=== PATIENT | female | born 1960 | race Caucasian/White ===

== ENCOUNTER 2017-07-30 09:43 | Day surgery (SDC) | payer OTHER ==
[~2017-07-30 09:43] MED LIST: Acetaminophen/HYDROcodone 325-5 MG Tab PO PRN; Bupivacaine 0.25%/EPINEPHrine 1:200,000 10 ML SDV INJECT ONE; Bupivacaine 25%/EPINEPHrine/PF 30 ML ONE; Lactated Ringers 1,000 ML IV SCH; Lidocaine 2% 5 ML SDV ONE; Midazolam 1 MG/ML 2 ML SDV ONE; Propofol 200 MG/20 ML SDV ONE; ceFAZolin 2 GM in Premix Bag 1 BAG IV ONE; fentaNYL 100 MCG/2 ML SDV ONE
[2017-07-30] MEDS ORDERED: ceFAZolin/Dextrose,Iso-Osmotic 2 GM/50 ML Duplex Bag IV ONE (10:41)
--- NOTE | 2017-07-30 11:11 | PCM.PREANE ---
Preanesthetic Assessment - Anesthesia/Transfusion/Family Hx Anesthesia History: Prior Anesthesia Without Reaction Other Type of Anesthesia Reaction Comment: developed CHF after Hysterectomy- sent home on Lasix Family History of Anesthesia Reaction: No Transfusion History: No Prior Transfusion(s) Intubation History: Unknown - Review of Systems General: No Symptoms Pulmonary: No Symptoms Cardiovascular: No Symptoms Gastrointestinal: No Symptoms Neurological: No Symptoms Other: Reports: None - Physical Assessment Height: 1.7 m Weight: 72.575 kg ASA Class: 2 Mental Status: Alert & Oriented x3 Airway Class: Mallampati = 2 Dentition: Reports: Normal Dentition, Rawlins(s) (x2 upper front) Thyro-Mental Finger Breadths: 2 Mouth Opening Finger Breadths: 3 ROM/Head Extension: Full Lungs: Clear to Auscultation, Normal Respiratory Effort Cardiovascular: Regular Rate, Regular Rhythm - Allergies Allergies/Adverse Reactions: Allergies Allergy/AdvReac Type Severity Reaction Status Date / Time No Known Allergies Allergy Verified 07/27/17 17:19 - Blood Blood Available: No - Anesthesia Plan Pre-Op Medication Ordered: None - Acknowledgements Anesthesia Type Planned: General Anesthesia Pt an Appropriate Candidate for the Planned Anesthesia: Yes Alternatives and Risks of Anesthesia Discussed w Pt/Guardian: Yes Pt/Guardian Understands and Agrees with Anesthesia Plan: Yes PreAnesthesia Questionnaire Other HEENT History: uses reading glasses, has lower partial removable denture Cardiovascular History: Reports: Other (See Below) Other Cardiovascular History: developed CHF after Hysterectomy, was sent home on Lasix Gastrointestinal History: Reports: None COLLAR STITCHER History: Reports: Endometriosis Neurological History: Reports: Other (See Below) Other Neuro History: hx of motion sickness Psychiatric History: Reports: Anxiety, Depression Dermatologic History: Reports: Eczema - Past Surgical History Head Surgeries/Procedures: Reports: None HEENT Surgical History: Reports: LASIK GI Surgical History: Reports: Appendectomy Female Surgical History: Reports: Breast Implant, Hysterectomy Musculoskeletal Surgical History: Reports: Other (See Below) Other Musculoskeletal Surgeries/Procedures:: bilateral bunionectomy (has a screw in each foot) - SUBSTANCE USE Smoking Status *Q: Never Smoker Recreational Drug Use History: No - HOME MEDS Home Medications: Home Meds Estradiol [Climara] 0.75 mg PO ASDIRECTED 07/27/17 [History] buPROPion HCl [Wellbutrin Xl] 300 mg PO DAILY 07/27/17 [History] - CURRENT (IN HOUSE) MEDS Current Meds: Current Medications Hydrocodone Bitart/Acetaminophen (Clinton 325-5 Mg) 1 tab PO Q4H PRN PRN Reason: Pain Lactated Ringer's (Ringers, Lactated) 1,000 mls @ 500 mls/hr IV .BOLUS MICHEAL Last Admin: 07/30/17 10:57 Dose: 500 mls/hr Discontinued Medications Bupivacaine HCl/Epinephrine Bitart (Marcaine 0.25%/Epinephrine 1:200,000) 10 ml INJECT ONETIME ONE Stop: 07/30/17 08:01 Cefazolin Sodium/Dextrose (Ancef) Confirm Administered Dose 2 gm IV .STK-MED ONE Stop: 07/30/17 10:42 Fentanyl (Sublimaze) Confirm Administered Dose 100 mcg .ROUTE .STK-MED ONE Stop: 07/30/17 09:00 Cefazolin Sodium/Dextrose 2 gm (/ Premix) 50 mls @ 100 mls/hr IV ONETIME ONE Stop: 07/30/17 08:29 Bupivacaine HCl/Epinephrine Bitart (Sensorc Mpf 0.25%-Epi [id number]) Confirm Administered Dose 30 mls @ as directed .ROUTE .STK-MED ONE Stop: 07/30/17 07:36 Lidocaine (Xylocaine-Mpf 2%) Confirm Administered Dose 5 ml .ROUTE .STK-MED ONE Stop: 07/30/17 09:00 Midazolam HCl (Versed 1 Mg/Ml) Confirm Administered Dose 2 mg .ROUTE .STK-MED ONE Stop: 07/30/17 09:00 Propofol (Diprivan 20 Ml) Confirm Administered Dose 200 mg .ROUTE .STK-MED ONE Stop: 07/30/17 09:00
[2017-07-30] MEDS ORDERED: Ketorolac 30 MG/ML SDV ONE (12:30)
[2017-07-30] MEDS ORDERED: Ondansetron 4 MG/2 ML SDV ONE (12:30)
[2017-07-30] MEDS: fentaNYL 100 MCG/2 ML SDV IVPUSH PRN ×2 (13:01→13:08)
--- NOTE | 2017-07-30 14:15 | PCM48HPAN ---
Post Anesthesia Note - EVALUATION WITHIN 48HRS OF ANESTHETIC Vital Signs in Normal Range: Yes Patient Participated in Evaluation: Yes Respiratory Function Stable: Yes Airway Patent: Yes Cardiovascular Function Stable: Yes Hydration Status Stable: Yes Pain Control Satisfactory: Yes Nausea and Vomiting Control Satisfactory: Yes Mental Status Recovered: Yes Resp Rate: 10 - COMMENTS/OBSERVATIONS Free Text/Narrative:: no anesthesia problems
--- NOTE | 2017-07-30 15:50 | PCM.OPNOTE ---
- General Post-Op/Procedure Note Date of Surgery/Procedure: 07/30/17 Operative Procedure(s): closed reduction pin fixation left thumb metacarpophalangeal joint dislocation Pre Op Diagnosis: left thumb metacarpophalangeal joint dislocation Post-Op Diagnosis: Same Anesthesia Technique: General LMA, Local Primary Surgeon: Yari Del Castillo [employer] Department Manager: Kate Solano Complications: None Condition: Good Free Text/Narrative:: Intake & Output 07/29/17 07/30/17 07/30/17 23:59 07:59 15:59 Intake Total 1400 Balance 1400
--- NOTE | 2017-07-30 23:04 | OR ---
SURGEON: ISABELLA MEEHAN MD DATE OF PROCEDURE: 07/30/2017 PREOPERATIVE DIAGNOSIS: Unstable left thumb metacarpophalangeal joint dislocation. POSTOPERATIVE DIAGNOSIS: Unstable left thumb metacarpophalangeal joint dislocation. PROCEDURE: Closed reduction and pin fixation of left thumb metacarpophalangeal joint dislocation. BOAT FUELER: [place] Mc. ANESTHESIA: General LMA with local. REASON BOAT FUELER WAS NECESSARY: Prepping, draping, positioning, and other assistance. INDICATIONS: Ms. Howard is a 57-year-old female, who unfortunately had a left thumb metacarpophalangeal joint dislocation. This was seen in our clinic and reduction was obtained. Postreduction films were obtained and unfortunately the patient returned a week later with the joint not in place. Risks and benefits of pin fixation of the unstable left thumb metacarpophalangeal joint dislocation were discussed and she was in agreement to proceed. Risks were including, but not limited to, bleeding, infection, damage to underlying or overlying structures, possible need for future interventions, and possible scarring. PROCEDURE IN DETAIL: After informed consent was obtained and placed on the chart, the patient was brought to the operating theater and laid in supine position. After adequate general anesthesia was obtained, the area was anesthetized with local block and fluoroscopy demonstrated dislocation. The thumb was relocated and placed in appropriate position and placed through range of motion. It was easily dislocated with forced thumb hyperextension. Once relocated, the finger was put in appropriate position and confirmed with fluoroscopy. The pins were trimmed, dressed with Jurgan balls, and were dressed with Xeroform. She was placed in a short-arm thumb spica splint with 4-inch plaster. She tolerated this well. All counts and needles were correct at the end of the case. FOLLOWUP INSTRUCTIONS: The patient will see us in approximately 2 weeks or sooner if any problems, questions, or concerns. HEGGTHE / MODL /[id number]
--- NOTE | 2017-08-02 09:01 | CR ---
EXAMINATION: Left hand HISTORY: Reduction COMPARISON: 07/13/2017 TECHNIQUE: 4 views FINDINGS/IMPRESSION: Operative control films demonstrate pinning of the first MCP joint.
== END 2017-07-30 14:30 | disposition home or self-care (01) ==
LOC: MW.SDS 09:43
PROVIDERS: ATTEND Plastic Surgery
DX: S63.115A Dislocation of metacarpophalangeal joint of left thumb, initial encounter (principal); I50.9 Heart failure, unspecified; F41.9 Anxiety disorder, unspecified; F32.9 Major depressive disorder, single episode, unspecified; Z90.49 Acquired absence of other specified parts of digestive tract; X58.XXXA Exposure to other specified factors, initial encounter; Z90.710 Acquired absence of both cervix and uterus; Z79.899 Other long term (current) drug therapy
CPT/HCPCS: 26706; 76000; A9270; J0690; J1885; J2250; J2405; J3010; J7120; 01820; J2704